=== PATIENT | female | born 1975 ===

== ENCOUNTER → 2023-05-06 12:39 | Outpatient (CLI) | payer MEDICAID, SELFPAY ==
--- NOTE | ~2023-05-06 | US_ITS ---
EXAMINATION: US pelvic complete w TV DATE: 05/06/2023 13:18 INDICATION: Hypertrophy of the uterus TECHNIQUE: Multiple transabdominal and endovaginal sonographic images of the pelvis were obtained. COMPARISON: None. FINDINGS: The uterus measures 13.5 x 7.1 x 8.7 cm. There is a 10.7 x 10.4 x 10.1 cm intramural uterin e fibroid of the posterior uterine body in the fundus. There is a 6.8 x 6.5 x 6.4 cm intramural fibro id of the lower uterine segment near the cervix. The endometrial complex measures 14 mm. The right ov arielle measures 5.2 x 4.1 x 4.2 cm and contains a 4.1 cm cyst. The left ovary measures 3.1 x 2.2 x 2.4 c m. There is normal vascular flow in the ovaries. There is no free fluid in the pelvis. IMPRESSION: 1. Two large uterine fibroids as detailed above. Reviewed, dictated and finalized at location B. [facility]
== END ==
PROVIDERS: PCP Nurse Practitioner Family; Visit Provider Nurse Practitioner Family
DX: N85.2 Hypertrophy of uterus (principal); D25.9 Leiomyoma of uterus, unspecified
CPT/HCPCS: 76830; 76856